=== PATIENT | female | born 1935 | race Caucasian/White ===

== ENCOUNTER 2017-06-14 13:14 | Outpatient (CLI) | payer MEDICARE ==
--- NOTE | 2017-06-14 15:02 | MMO ---
BILATERAL DIGITAL SCREENING MAMMOGRAMS: Date: 06/14/17 This patient's mammogram was interpreted with the assistance of computer-aided detection. Comparison made with exams of 06/10/16 and 09/20/13. FINDINGS: There are scattered fibroglandular densities. No calcifications or architectural distortion seen. Th ere is a questionable nodular density in the right upper outer breast. IMPRESSION: BIRADS 0: Incomplete: Need Additional Imaging Evaluation and/or Prior Mammograms for Comparison Further evaluation with direct ML and spot compression views of the right breast finding are recomme nded. An ultrasound would also be helpful. The facility will notify the patient of the need for additional imaging services. POS: [facility]
== END 2017-06-14 13:15 | disposition home or self-care (01) ==
LOC: SCSMAMMO 13:14
PROVIDERS: ATTEND Family Medicine
DX: Z12.31 Encounter for screening mammogram for malignant neoplasm of breast (principal)
CPT/HCPCS: 77067; G0202

== ENCOUNTER 2017-06-17 08:31 | Outpatient (CLI) | payer MEDICARE ==
--- NOTE | 2017-06-17 10:50 | CT ---
CT SOFT TISSUE NECK: HISTORY: Cough. Stridor. Wheezing. TECHNIQUE: Contrast enhanced CT images of the soft tissue neck are obtained. FINDINGS: No significant evidence of lymphadenopathy is seen. There is an area of calcified nodular heterogen eity noted in the left thyroid lobe. Further workup of the thyroid gland is recommended using sonog isra to further characterize this left thyroid lesion. No other significant soft tissue neck abnormality is seen. IMPRESSION: Area of heterogeneous calcified density in the left thyroid lobe. Further workup using sonography is recommended. POS: [facility]
--- NOTE | 2017-06-17 10:54 | CT ---
CONTRAST ENHANCED CT IMAGES OF THE CHEST: HISTORY: Cough. Stridor. TECHNIQUE: Contrast enhanced CT of the chest is performed. FINDINGS: Surgical malu are seen in the gallbladder fossa. Atherosclerotic calcification of the thoracic a nuzhat is seen. Vascular calcification is also seen in the coronary arteries. Areas of ill defined density are seen in the lingula, seen on image #39. This may represent a lingu lar area of scar. This area appears to have been present on the previous CT from 10/26/2012 and is stable. No other significant abnormality is seen. No evidence of mediastinal, hilar, or axillary lymphadenopathy is seen. Again, left thyroid area of heterogeneity and calcification is seen. IMPRESSION: Unremarkable contrast enhanced CT of the chest. POS: [facility]
== END 2017-06-17 08:32 | disposition home or self-care (01) ==
LOC: CT 08:31
PROVIDERS: ATTEND Internal Medicine
DX: R05 Cough (principal); R06.1 Stridor; E07.89 Other specified disorders of thyroid
CPT/HCPCS: 70491; 71260

== ENCOUNTER 2017-06-17 09:39 | Outpatient (CLI) | payer MEDICARE ==
--- NOTE | 2017-06-17 12:37 | ULT ---
RIGHT DIAGNOSTIC MAMMOGRAM RIGHT BREAST ULTRASOUND: Date: 06/17/17 HISTORY: 81-year-old female with right breast nodule on screening mammogram. FINDINGS: Additional images obtained today demonstrate persistence of the nodular density in the right upper o uter breast, which is new since the previous exam of 06/10/16. This nodule was not visualized on sonographic evaluation of the right breast. IMPRESSION: BIRADS 4: Suspicious Abnormality - Biopsy Should Be Considered Recommend surgical consultation for needle localization and subsequent excisional biopsy. These exams were interpreted in consultation with Dr. Madeline Moreno, who concurs. Discussed in person with the patient and her daughter at 1215 hours. POS: [facility]
== END 2017-06-17 09:40 | disposition home or self-care (01) ==
LOC: MAMMO 09:39
PROVIDERS: ATTEND Family Medicine
DX: R92.2 Inconclusive mammogram (principal)
CPT/HCPCS: 76642; G0206

== ENCOUNTER 2017-06-20 12:24 | Outpatient (CLI) | payer MEDICARE ==
[2017-06-20 13:36] LABS: #Basophils 0.1 thou/uL (0.0-0.2); #Eosinphils 0.1 thou/uL (0.0-0.7); #Lymphocytes 1.1 thou/uL (1.20-3.40); #Monocytes 0.6 thou/uL (0.11-0.59); #Neutrophils 4.5 thou/uL (1.40-6.50); %Basophils 0.8 % (0.0-1.0); %Eosinophils 1.2 % (0.0-10.0); %Lymphocytes 17.7 % (21.0-51.0); %Monocytes 9.2 % (0.0-10.0); Hematocrit 39.8 % (36.0-47.0); Mean Platelet Volume 6.8 fL (7.4-10.4); Red Blood Cell (RBC) Count 4.31 mill/uL (4.20-5.40); White Blood Cell (WBC) Count 6.4 thou/uL (4.8-10.8)
[2017-06-20 13:44] LABS: ALT (SGPT) 20 U/L (8-55); AST (SGOT) 25 U/L (5-34); Alkaline Phosphatase 118 U/L (40-150); Anion Gap 11 mmol/L (10-20); BUN (Urea Nitrogen) 27 mg/dL (9.8-20.1); Bilirubin, Total 0.6 mg/dL (0.2-1.2); Calc. Creatinine Clearance 0 mL/min (70-130); Calcium 9.2 mg/dL (7.8-10.44); Carbon Dioxide 23 mmol/L (23-31); Chloride 108 mmol/L (98-107); Estimated GFR-MDRD 80; Globulin 2.8 g/dL (2.4-3.5); Protein, Total 6.9 g/dL (6.0-8.3)
== END 2017-06-20 12:25 | disposition home or self-care (01) ==
LOC: LABBT 12:24
PROVIDERS: ATTEND Surgery
DX: Z01.812 Encounter for preprocedural laboratory examination (principal); N63.10 Unspecified lump in the right breast, unspecified quadrant
CPT/HCPCS: 80053; 85025

== ENCOUNTER 2017-07-04 12:33 | Outpatient (CLI) | payer MEDICARE ==
--- NOTE | 2017-07-04 16:23 | ULT ---
THYROID ULTRASOUND: DATE: 07/04/2017 COMPARISON: None. HISTORY: Evaluate thyroid abnormality seen on prior CT exam, assess for thyroid mass lesion. TECHNIQUE: Multiplanar frazier scale sonographic imaging of the thyroid gland obtained. FINDINGS: The thyroid isthmus measures 3-4 mm in AP dimension, within normal limits. Right lobe measures 3.8 x 1.2 x 1.5 cm. There is a heterogeneously hypoechoic solid nodule within t he superior aspect of the right lobe of the thyroid gland measuring 6 x 5 x 4 mm. Left lobe measures 4.0 x 1.7 x 2.0 cm and contains a dominant heterogeneously hypoechoic solid mass with internal calcifications measuring 2.6 x 1.9 x 1.6 cm. IMPRESSION: Dominant solid mass with calcifications within the left lobe of the thyroid gland measuring up to 2. 6 cm. Recommend ENT consultation and fine needle aspiration. Code T. POS: [facility]
== END 2017-07-04 12:34 | disposition home or self-care (01) ==
LOC: ULT 12:33
PROVIDERS: ATTEND Physician Assistant
DX: E04.1 Nontoxic single thyroid nodule (principal); J38.3 Other diseases of vocal cords; E07.89 Other specified disorders of thyroid
CPT/HCPCS: 76536

== ENCOUNTER 2018-10-13 12:35 | Outpatient (CLI) | payer MEDICARE ==
--- NOTE | 2018-10-13 14:35 | MRI ---
MRI OF THE LEFT KNEE WITHOUT CONTRAST: Date: 10/13/18 INDICATION: History of fall with left knee pain. COMPARISON: Left knee radiograph dated 09/01/18. FINDINGS: There are small marginal osteophytes affecting all major compartments of the left knee. There is mode rate chondrosis involving the medial patellofemoral and medial femorotibial joint compartment. There is a horizontally oriented tear involving the body and posterior horn of the medial meniscus. T here is some central free edge fraying involving the lateral meniscal body. There is mucoid degeneration of the ACL. The PCL, MCL and LCLC are intact. There is a small, low grade chondroid lesion versus bone infarct involving the proximal tibia. This m easures approximately 1.9 cm. IMPRESSION: 1. Mild osteoarthrosis of the left knee, predominantly affecting the medial femorotibial and patello femoral compartments. 2. Medial meniscal tear. There is central free edge fraying involving the body of the lateral menisc us. 3. Mucoid degeneration of the ACL. 4. Lobulated T2 hyperintense, T1 hypointense, partially calcified lesion within the proximal tibia, suspicious for a low grade chondral lesion versus infarct. 5. Mild Noble's cyst. POS: [facility]
--- NOTE | 2018-10-13 14:50 | MRI ---
MRI OF THE LEFT SHOULDER WITHOUT CONTRAST: INDICATION: Left shoulder rotator cuff tear. COMPARISON: Left shoulder radiograph dated 09/01/2018. FINDINGS: There is a partial-thickness high-grade articular surface tear involving the anterior and mid suprasp inatus at the footprint. This involves approximately 60-70% of the tendon thickness. There is promi nent tendonosis of the posterior supraspinatus and infraspinatus. There is postsurgical change of a prior rotator cuff repair. There is mild tendinosis of subscapularis. There is complete disruption of the long head of the biceps tendon with distal retraction. There is a partial-thickness split tear of the distally displaced biceps tendon with a residual tendon fragmen t seen within the bicipital groove. This does not appear to attach to the biceps anchor complex. There is prominent degenerative fraying the superior glenoid labrum. Moderate AC joint osteoarthrosis. IMPRESSION: 1. Partial thickness high-grade articular surface tear of the anterior to mid supraspinatus at the f ootprint. 2. Full-thickness disruption of the intraarticular biceps tendon with displacement of the biceps ten don distally within the lower bicipital groove. There is also an intratendinous split tear of portio ns of the long head of the biceps tendon. 3. Prominent degenerative fraying of the superior glenoid labrum. 4. Moderate acromioclavicular osteoarthrosis. 5. Postsurgical change of a prior rotator cuff repair. POS: [facility]
== END 2018-10-13 12:36 | disposition home or self-care (01) ==
LOC: TBSIIMAG 12:35
PROVIDERS: ATTEND Orthopaedic Surgery
DX: S83.242A Other tear of medial meniscus, current injury, left knee, initial encounter (principal); M25.562 Pain in left knee; M25.512 Pain in left shoulder; M75.102 Unspecified rotator cuff tear or rupture of left shoulder, not specified as traumatic; S43.005A Unspecified dislocation of left shoulder joint, initial encounter; S46.212A Strain of muscle, fascia and tendon of other parts of biceps, left arm, initial encounter; M19.012 Primary osteoarthritis, left shoulder; M17.11 Unilateral primary osteoarthritis, right knee; M71.22 Synovial cyst of popliteal space [Baker], left knee; M89.9 Disorder of bone, unspecified; Z98.890 Other specified postprocedural states

== ENCOUNTER 2018-10-17 14:16 | Outpatient (CLI) | payer MEDICARE ==
[2018-10-17 16:02] LABS: #Lymphocytes 0.6 thou/uL (1.20-3.40); #Monocytes 0.4 thou/uL (0.11-0.59); #Neutrophils 6.7 thou/uL (1.40-6.50); %Basophils 0.1 % (0.0-1.0); %Eosinophils 0.1 % (0.0-10.0); %Lymphocytes 8.3 % (21.0-51.0); %Monocytes 5.2 % (0.0-10.0); %Neutrophils 86.3 % (42.0-75.0); Hemoglobin 13.1 g/dL (12.0-16.0); Mean Corpuscular HGB CONC 32.2 g/dL (32.0-36.0); Mean Corpuscular Hemoglobin 29.9 pg (27.0-31.0); Mean Corpuscular Volume 92.9 fL (78.0-98.0); Mean Platelet Volume 6.9 fL (7.4-10.4); Platelet Count 280 thou/uL (130-400); RBC Distribution Width 13.2 % (11.5-14.5); Red Blood Cell (RBC) Count 4.37 mill/uL (4.20-5.40); White Blood Cell (WBC) Count 7.7 thou/uL (4.8-10.8)
[2018-10-17 16:15] LABS: Anion Gap 12 mmol/L (10-20); BUN (Urea Nitrogen) 11 mg/dL (9.8-20.1); Calc. Creatinine Clearance 0 mL/min (70-130); Calcium 9.6 mg/dL (7.8-10.44); Carbon Dioxide 23 mmol/L (23-31); Chloride 109 mmol/L (98-107); Estimated GFR-MDRD 72; Glucose 103 mg/dL (83-110); Potassium 4.2 mmol/L (3.5-5.1); Sodium 140 mmol/L (136-145)
== END 2018-10-17 14:17 | disposition home or self-care (01) ==
LOC: LABBT 14:16
PROVIDERS: ATTEND Orthopaedic Surgery
DX: Z01.818 Encounter for other preprocedural examination (principal); S83.242A Other tear of medial meniscus, current injury, left knee, initial encounter
CPT/HCPCS: 80048; 85025; 93005; 93010

== ENCOUNTER 2018-10-19 07:05 | Day surgery (SDC) | payer MEDICARE ==
[2018-10-17 14:05] VITALS: BMI 21.1
[2018-10-19] MEDS ORDERED: PROPOFOL 20 ML ONE (07:07)
[2018-10-19] MEDS ORDERED: Fentanyl 100 MCG/2 ML VIAL ONE (08:29)
[2018-10-19] MEDS ORDERED: Lidocaine 2% w/Epinephrine 1:200K 20 ML VIAL ONE (13:46)
[2018-10-19] MEDS ORDERED: Bupivacaine HCl 0.5%/Epinephrine 1:200,000/PF 30 ml Vial ONE (13:46)
[2018-10-19] MEDS ORDERED: Ondansetron PF 4 MG/2 ML Vial ONE (14:18)
[2018-10-19] MEDS ORDERED: Lidocaine 1% PF 5 ML VIAL ONE (14:18)
[2018-10-19] MEDS ORDERED: PROPOFOL 200 MG/20 ML VIAL ONE (14:18)
--- NOTE | 2018-10-20 08:39 | OP ---
DATE OF PROCEDURE: 10/19/2018 PREOPERATIVE DIAGNOSIS: Left medial meniscus tear. POSTOPERATIVE DIAGNOSIS: Left medial meniscus tear. PROCEDURE PERFORMED: Arthroscopic left medial meniscectomy. ANESTHESIA: General. ESTIMATED BLOOD LOSS: Minimal. SPECIMENS: None. DRAINS: None. COMPLICATIONS: None. FINDINGS OF SURGERY: Mild grade 3 chondromalacia of medial femoral condyle, grade 2 chondromalacia, patella intact, lateral compartment, complex tear posterior horn medial meniscus. The scope was placed in the lateral portal, and probe was placed in the medial portal. Partial medial meniscectomy was performed using basket forceps, smoothed using a 4.0 full-radius resector. Then, probed the margin of the meniscus and made sure it was stable, irrigated the knee. Sterile dressings applied. Job ID: [id number]
== END 2018-10-19 12:33 | disposition home or self-care (01) ==
LOC: SDC 07:05
PROVIDERS: ATTEND Orthopaedic Surgery
PROC: 0SBD4ZZ Excision of Left Knee Joint, Percutaneous Endoscopic Approach (ICD-10-PCS; principal; 2018-10-19)
DX: S83.232A Complex tear of medial meniscus, current injury, left knee, initial encounter (principal); M22.42 Chondromalacia patellae, left knee; J45.909 Unspecified asthma, uncomplicated; M19.90 Unspecified osteoarthritis, unspecified site; Z79.1 Long term (current) use of non-steroidal anti-inflammatories (NSAID); Z79.82 Long term (current) use of aspirin; Z79.899 Other long term (current) drug therapy; Z91.040 Latex allergy status; Z98.890 Other specified postprocedural states
CPT/HCPCS: J0670; J2001; J2405; J2704; J3010

== ENCOUNTER 2019-02-20 13:03 | Outpatient (CLI) | payer MEDICARE ==
--- NOTE | 2019-02-20 14:03 | ULT ---
THYROID ULTRASOUND: 02/20/19 HISTORY: Nontoxic thyroid nodule. COMPARISON: 07/04/17. FINDINGS: Thyroid isthmus measures 0.25 cm. Right thyroid lobe measures 1.4 x 1.2 x 3.2 cm. Left thyroid lobe measures 1.9 x 1.9 x 4.2 cm. IN the mid portion of the right thyroid lobe is a predominantly solid echotexture focus measuring 0.7 x 0.7 x 0.4 cm. In the mid portion of the left thyroid lobe is a mixed echotexture focus which is pr edominantly solid measuring 1.7 x 1.7x 2.8 cm. There appear to be concentric central possibly lamina r calcifications. IMPRESSION: Left and right thyroid lobe nodule as described above. The right thyroid lobe nodule has a TI-RADS c alculator score of TR3. The large nodule in the left thyroid lobe has a TI-RADS level of TR4, moderately suspicious. Fine nee dle aspiration is recommended. POS: [facility]
== END 2019-02-20 13:04 | disposition home or self-care (01) ==
LOC: BICULT 13:03
PROVIDERS: ATTEND Family Medicine
DX: E04.2 Nontoxic multinodular goiter (principal)
CPT/HCPCS: 76536

== ENCOUNTER 2019-03-06 12:22 | Day surgery (SDC) | payer MEDICARE ==
[2019-03-05 13:52] VITALS: BMI 20.2
[2019-03-06] MEDS ORDERED: Sodium Bicarbonate 2.5 MEQ/5 ML VIAL ONE (12:45)
[2019-03-06] MEDS ORDERED: Lidocaine 1% PF 5 ML VIAL ONE (12:45)
[2019-03-06 13:53] VITALS: BP 100/50; TEMP 98.2
--- NOTE | 2019-03-06 16:03 | ULT ---
Sonographic guided fine needle aspiration left thyroid lobe mass. HISTORY: Large mass left thyroid lobe. FINDINGS: After explaining the procedure and answering all questions, sonographic survey confirmed la rge heterogeneous mass with central calcification in the left thyroid lobe. Sterile technique, buffered local anesthesia, sonographic guidance, and a medial approach were used t o carefully advance a 25-gauge needle to the center of the large mass. Position was confirmed with sonography. [id number] motion was used to obtain sample. A total 4 specimens were obtained and kraft bmitted to pathology for evaluation. Postprocedure imaging shows no evidence of complication. Patient tolerated the procedure well and was dismissed in good condition. IMPRESSION: Technically successful sonographic guided fine needle aspiration left thyroid lobe mass. Pathology is pending.
== END 2019-03-06 13:35 | disposition home or self-care (01) ==
LOC: ULT 12:22
PROVIDERS: ATTEND Specialist
PROC: 0GBG3ZX Excision of Left Thyroid Gland Lobe, Percutaneous Approach, Diagnostic (ICD-10-PCS; principal; 2019-03-06)
DX: E07.89 Other specified disorders of thyroid (principal); J45.909 Unspecified asthma, uncomplicated; G89.29 Other chronic pain; M19.90 Unspecified osteoarthritis, unspecified site; E21.3 Hyperparathyroidism, unspecified; Z79.51 Long term (current) use of inhaled steroids; Z79.899 Other long term (current) drug therapy; Z91.040 Latex allergy status
CPT/HCPCS: 60100; 76942; 88173; J2001

== ENCOUNTER 2019-03-12 08:40 | Outpatient (CLI) | payer MEDICARE ==
--- NOTE | 2019-03-12 14:42 | NM ---
Nuclear medicine parathyroid scan with scintigraphy and SPECT-CT fusion: DATE: 03/12/2019 HISTORY: 83-year-old female with hyperparathyroidism. Serum PTH: 90.7 (normal range 19.8 - 88.0). TECHNIQUE: IV injection of 27.4 mCi of technetium 99m-sestamibi. Planar scintigraphy, SPECT in 3 planes, noncontrast CT, and CT[facility] FINDINGS: There is a partially calcified left thyroid nodule which was recently biopsied with ultrasound-guided FNA. It has heterogeneously low CT attenuation and mild calcification. There is asymmetrically increased sestamibi uptake in the left lobe of the thyroid gland, consistent with that thyroid nodule . It is probably of thyroid origin. There is a much smaller chance that it would be of parathyroidal origin (unlikely). No other focus of asymmetrically increased uptake is identified in t he rest of the neck or upper chest. On the two-hour delayed scintigraphic images, no focus of residual sestamibi uptake is identified to indicate parathyroid adenoma. IMPRESSION: No good candidate for parathyroid adenoma identified.
== END 2019-03-12 08:41 | disposition home or self-care (01) ==
LOC: NM 08:40
PROVIDERS: ATTEND Specialist
DX: E21.3 Hyperparathyroidism, unspecified (principal)
CPT/HCPCS: 78072; A9500

== ENCOUNTER 2019-08-08 12:26 | Outpatient (CLI) | payer MEDICARE ==
--- NOTE | 2019-08-08 13:27 | RAD ---
XR Wrist 3 Rt View STANDARD History: Fall with pain Comparison: None. Findings: Mild widening of the scapholunate interval is age indeterminant. Concern for a nondisplaced transversely oriented distal radial metaphyseal fracture best seen on the lateral radiograph. Moderate dorsal edema. 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 Impression: Nondisplaced mildly dorsally impacted extra-articular transversely oriented distal radial metaphyseal fracture.
--- NOTE | 2019-08-08 13:28 | RAD ---
Right forearm 2 views: HISTORY: Fall, right forearm pain FINDINGS: There is suggestion of a fracture involving the dorsal aspect of the distal radius.
== END 2019-08-08 12:27 | disposition home or self-care (01) ==
LOC: BICRAD 12:26
PROVIDERS: ATTEND Family Medicine
DX: W19.XXXS Unspecified fall, sequela (principal); S52.591A Other fractures of lower end of right radius, initial encounter for closed fracture

== ENCOUNTER 2021-03-12 08:43 | Outpatient (CLI) | payer MEDICARE | END 2021-03-12 08:44 | disposition home or self-care (01) | LOC: BICMAMMO 08:43 | PROVIDERS: ATTEND Family Medicine | DX: Z12.31 Encounter for screening mammogram for malignant neoplasm of breast (principal); Z91.89 Other specified personal risk factors, not elsewhere classified | CPT/HCPCS: 77063; 77067 ==

== ENCOUNTER 2021-06-24 17:00 | Outpatient (CLI) | payer MEDICARE | END 2021-06-24 17:01 | disposition home or self-care (01) | LOC: SLEEPLAB 17:00 | PROVIDERS: ATTEND Family Medicine | DX: G47.33 Obstructive sleep apnea (adult) (pediatric) (principal); F51.9 Sleep disorder not due to a substance or known physiological condition, unspecified; G47.10 Hypersomnia, unspecified; R53.83 Other fatigue; G47.9 Sleep disorder, unspecified; F41.9 Anxiety disorder, unspecified; I10 Essential (primary) hypertension | CPT/HCPCS: 95806 ==

== ENCOUNTER 2022-03-31 11:00 | Outpatient (CLI) | payer MEDICARE | END 2022-03-31 11:01 | disposition home or self-care (01) | LOC: CT 11:00 | PROVIDERS: ATTEND Anesthesiology Pain Medicine | DX: M50.21 Other cervical disc displacement, high cervical region (principal); M47.812 Spondylosis without myelopathy or radiculopathy, cervical region; R93.89 Abnormal findings on diagnostic imaging of other specified body structures | CPT/HCPCS: 72125 ==

== ENCOUNTER 2022-10-18 10:09 | Emergency (ER) | payer MEDICARE | END 2022-10-18 14:19 | disposition home or self-care (01) | LOC: ERS 10:09 | DX: S60.811A Abrasion of right wrist, initial encounter (principal); W18.30XA Fall on same level, unspecified, initial encounter ==